=== PATIENT | female | born 1965 | race African-American/Black ===

== ENCOUNTER 2024-10-28 12:57 | Emergency (ER) | payer SELFPAY ==
[2024-10-28] MEDS ORDERED: Buprenorphine 8mg/Naloxone 2mg per 1 FILM SL SCH (14:45)
== END 2024-10-28 16:30 | disposition home or self-care (01) ==
LOC: CSHERS 12:57
DX: F11.23 Opioid dependence with withdrawal (principal); F17.210 Nicotine dependence, cigarettes, uncomplicated
CPT/HCPCS: 99284; J0571; Q0162